=== PATIENT | female | born 1980 | race Caucasian/White ===

== ENCOUNTER 2022-06-15 11:03 | Emergency (ER) | payer MEDICAID ==
[~2022-06-15] VITALS: Ht 157.5 cm; Wt 62.6 kg
[2022-06-15 11:31] VITALS: BP 106/72
--- NOTE | 2022-06-15 11:39 | NUR ---
Pt ambulated to lobby.
[2022-06-15] MEDS ORDERED: FLUORESCEIN OPTH STRIP 1 MG OP ONE (12:45)
[2022-06-15] MEDS ORDERED: TETRACAINE HCL/PF 0.5% OPTH 4 ML BTL OP ONE (12:45)
--- NOTE | 2022-06-15 13:15 | NUR ---
TO ER BED 5
--- NOTE | 2022-06-15 13:40 | NUR ---
PA Means evaluating patient at bedside.
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
[2022-06-15] MEDS ORDERED: TOMOMETER 1 DEV DEV MC ONE (13:42)
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
[2022-06-15 14:05] VITALS: BP 108/76
--- NOTE | 2022-06-15 14:05 | NUR ---
Patient discharged with v/s stable. Written and verbal after care instructions given. Patient verbalized understanding. Ambulatory with steady gait. All questions addressed prior to discharge. Advised to follow up with PMD.
== END 2022-06-15 14:05 | disposition home or self-care (01) ==
LOC: MED 11:03
DX: H53.142 Visual discomfort, left eye (principal); H92.02 Otalgia, left ear
CPT/HCPCS: 99283